=== PATIENT | male | born 1975 | race Caucasian/White ===

== ENCOUNTER 2020-11-13 13:37 | Emergency (ER) | payer OTHER ==
[~2020-11-13] VITALS: Ht 190.5 cm; Wt 108.9 kg
[2020-11-13] MEDS ORDERED: LIDODERM1 EACH TD (16:27)
== END 2020-11-13 16:40 | disposition home or self-care (01) ==
LOC: ED 13:37
DX: S32.019A Unspecified fracture of first lumbar vertebra, initial encounter for closed fracture (principal); S32.039A Unspecified fracture of third lumbar vertebra, initial encounter for closed fracture; V80.010A Animal-rider injured by fall from or being thrown from horse in noncollision accident, initial encounter
CPT/HCPCS: 71260; 74177; 80053; 81001; 85025; 96374; 96375; 99284-25; J2270; J2405; J7030; Q9967; U0003